=== PATIENT | male | born 1980 | race Caucasian/White ===

== ENCOUNTER 2017-07-31 08:52 | Emergency (ER) | payer OTHER ==
[~2017-07-31] VITALS: Ht 182.9 cm; Wt 86.2 kg
[~2017-07-31 08:52] MED LIST: ASPIRIN325 PO; BACTRIM DS TAB1 EACH PO; CEFDINIR300 MG PO; CLEOCIN HCL150 MG PO; CLEOCIN HCL300 MG PO; FLEXERIL PO; FLOMAX0.4 MG PO; HYDROCODON-ACE1 EAC7 PO; IBUPROFEN 800800 M1 PO; KEFLEX500 MG PO; MOBIC7.5 M1 PO; NAPROSYN500 MG PO; NOHOMEMEDICATIONS; NORCO 5-325 TA1 EACH PO; PERCOCET 5-3251 EACH PO; PHENAZOPYRIDIN200 M2 PO; PHENERGAN 25 MG25 M1 PO; TRAMADOL 50 MG50 MG PO; ZOFRAN4 MG PO
[2017-07-31 09:42] LABS: INFLUENZA B ANTIGEN None Detected (None Detect)
[2017-07-31] MEDS ORDERED: ZOFRAN 4 MG ORAL4 MG PO (09:54)
[2017-07-31] MEDS ORDERED: TAMIFLU75 MG PO (09:54)
[2017-07-31 10:06] VITALS: BP 126/76
== END 2017-07-31 10:07 | disposition home or self-care (01) ==
LOC: M.ERS 08:52
PROVIDERS: Emergency Medicine Emergency Medical Services
DX: J11.1 Influenza due to unidentified influenza virus with other respiratory manifestations (principal); F17.210 Nicotine dependence, cigarettes, uncomplicated; Z87.442 Personal history of urinary calculi; Z88.0 Allergy status to penicillin